=== PATIENT | male | born 1950 | race Hispanic/Latino ===

== ENCOUNTER 2019-12-13 22:27 | Inpatient (IN) | payer MEDICARE ==
[~2019-12-13 22:27] MED LIST: Iopamidol-370 76% 500 ML 1 ML ONE
[2019-12-13] MEDS ORDERED: Tranexamic Acid 1,000 MG/10 ML VIAL ONE (22:32)
[2019-12-13] MEDS ORDERED: CEFAZOLIN 1 GM VIAL ONE (22:33)
[2019-12-13] MEDS ORDERED: Boostrix 0.5 ML VIAL ONE (22:33)
[2019-12-13] MEDS ORDERED: Calcium Chloride 1 GM/10 ML Abboject SYRINGE ONE (22:52)
[2019-12-13 22:54] LABS: Base Excess-Venous -5.9 mmol/L (-2.0 to 3.0); Bicarbonate (HCO3v) 21.2 mmol/L (22.0-28.0); Calcium, Ionized 0.96 mmol/L (See Comments:); Chloride 103 mmol/L (98-107); Hemoglobin - Calc 13.2 g/dL (14.0-18.0); Potassium 3.3 mmol/L (3.5-5.1); Sodium 135 mmol/L (138-145); T. Carbon Dioxide 22.6 mmol/L (22.0-28.0); vO2 Saturation-calc 78.3 % (60.0-85.0)
[2019-12-13 22:56] LABS: Hemoglobin 13.1 g/dL (14.0-18.0); Mean Corpuscular HGB CONC 32.7 g/dL (32.0-36.0); Mean Corpuscular Hemoglobin 35.1 pg (27.0-31.0); Mean Platelet Volume 7.7 fL (7.4-10.4); Platelet Count 173 thou/uL (130-400); RBC Distribution Width 13.3 % (11.5-14.5); Red Blood Cell (RBC) Count 3.73 mill/uL (4.70-6.10); White Blood Cell (WBC) Count 15.1 thou/uL (4.8-10.8)
[2019-12-13] MEDS ORDERED: Fentanyl 100 MCG/2 ML VIAL ONE (22:57)
[2019-12-13] MEDS ORDERED: Phenylephrine 10 MG/ML VIAL ONE (22:57)
[2019-12-13] MEDS ORDERED: Tranexamic Acid 1,000 MG in Sodium Chloride 0.9% 250 ML 250 ML IVPB SCH (23:00)
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
[2019-12-13 23:03] LABS: INR-International Normal Ratio 1.1; PTT 27.6 sec (22.9-36.1); Prothrombin Time 14.1 sec (12.0-14.7)
[2019-12-13 23:09] LABS: #Basophils 0.1 thou/uL (0.0-0.2); #Eosinphils 0.2 thou/uL (0.0-0.7); #Lymphocytes 3.8 thou/uL (1.20-3.40); #Monocytes 0.7 thou/uL (0.11-0.59); #Neutrophils 10.3 thou/uL (1.40-6.50); %Basophils 0.6 % (0.0-1.0); %Eosinophils 1.4 % (0.0-10.0); %Lymphocytes 25.4 % (21.0-51.0); %Monocytes 4.4 % (0.0-10.0); %Neutrophils 68.2 % (42.0-75.0)
[2019-12-13 23:12] LABS: ALT (SGPT) 71 U/L (8-55); AST (SGOT) 176 U/L (5-34); Albumin 3.5 g/dL (3.4-4.8); Alcohol 272 mg/dL (Less than 10); Alkaline Phosphatase 59 U/L (40-110); Anion Gap 17 mmol/L (10-20); BUN (Urea Nitrogen) 8 mg/dL (8.4-25.7); Bilirubin, Total 0.4 mg/dL (0.2-1.2); Calc. Creatinine Clearance 0 mL/min (70-130); Calcium 8.1 mg/dL (7.8-10.44); Carbon Dioxide 18 mmol/L (23-31); Chloride 102 mmol/L (98-107); Estimated GFR-MDRD 74; Glucose 119 mg/dL (80-115); Potassium 3.4 mmol/L (3.5-5.1); Protein, Total 6.5 g/dL (5.8-8.1); Sodium 134 mmol/L (136-145)
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
--- NOTE | 2019-12-13 23:37 | CT ---
CT of the chest, abdomen, pelvis, thoracic spine, and lumbar spine: 12/13/2019 COMPARISON: None HISTORY: Injury, trauma, pain TECHNIQUE: axial CT imaging at 5 mm intervals from the thoracic inlet through the pubic symphysis wit h IV contrast. Coronal and sagittal reformatted imaging obtained FINDINGS: Old left clavicle fracture. No axillary, hilar, or mediastinal lymphadenopathy is seen. There is atherosclerotic calcification of the descending thoracic aorta. Coronary arterial calcification is noted. There is subcutaneous and intramuscular gas in the lateral right deltoid region. There is no pneumothorax seen on either side. There is soft tissue density/thickening in the region of the trevon of the diaphragm on the right, best seen on axial image 48 suspicious for hemorrhage, origin uncertain. Mild increased linear density noted within the bilateral lower lobes with no acute pulmonary parenchy mal abnormality seen. Review of the osseous structures of the chest demonstrate no evidence for displaced fracture. Evaluat ion of the anterior lateral ribs slightly limited bilaterally on the basis of motion artifact. There is no free intraperitoneal air or fluid seen. The hepatic parenchyma is hypodense, suggesting steatosis. No hepatic or splenic laceration. The gall bladder, pancreas, adrenal glands, and kidneys demonstrate no acute findings. There is a upper pole hypodensity within the right kidney with posterior calcification measuring 1.4 cm for which follow-up renal ultrasound is suggested. There is small volume fluid within the stomach. Limited assessment of the bowel demonstrates no evidence for inflammatory change or obstruction. There is gas within the subcutaneous fat and musculature medial to the right common femoral artery. T he vascular structures of the abdomen/pelvis appear patent. There is scattered atherosclerotic calcification of the abdominal aorta and its branches. There is soft tissue swelling and subcutaneous fat stranding as well as foci of soft tissue gas later al to the superior aspect of the right iliac bone. Neither hip appears dislocated. There is no widening of the sacroiliac joints or pubic symphysis. No acute pelvic fracture is noted. Thoracic spine: The anterior aspect of the intervertebral disc space at the T11-12 level is widened. There is no anterolisthesis or retrolisthesis noted within the thoracic spine. There is multilevel lower and mid thoracic spine disc space narrowing with anterior osteophyte format ion. There is multilevel lumbar spine degenerative change which includes multilevel lower lumbar spine fac et hypertrophy. Bilateral L3 pars defects are seen. No acute lumbar spine fracture is noted. IMPRESSION: Thickening of the right diaphragmatic trevon which is suspicious for hemorrhage, origin unc ertain. This could be related to diaphragmatic injury. Soft tissue injury of the right hemipelvis/right lower quadrant. Anterior widening of the T11-12 interspace, which could signify acute injury in the proper clinical s etting. Recommend follow-up MRI in clinical correlation. Results called to Dr. Pascal 11:34 PM 12/13/2019
[2019-12-13] MEDS ORDERED: Lidocaine 1% PF 5 ML VIAL ONE (23:40)
[2019-12-13] MEDS ORDERED: PROPOFOL 200 MG/20 ML VIAL ONE (23:40)
[2019-12-13] MEDS ORDERED: Rocuronium Bromide 10 MG/ML (10ML VIAL) ONE (23:40)
[2019-12-13] MEDS ORDERED: Glycopyrrolate 0.2 MG/ML 5 ML SYRINGE ONE (23:40)
--- NOTE | 2019-12-13 23:42 | CT ---
CT angiogram of the right thigh: 12/13/2019 COMPARISON: None HISTORY: Injury, trauma, pain TECHNIQUE: Axial CT imaging at 2.5 mm intervals from the lower pelvis through the upper calf with IV contrast. Coronal and sagittal 3-D reformatted imaging obtained. FINDINGS: The external and internal iliac arteries appear patent on the right. The common femoral art ty, profunda femoral artery, and superficial femoral artery are patent on the right. The right popliteal artery is patent. Imaged portions of the right anterior tibial artery, peroneal artery, and posterior tibial artery are patent. No evidence for right femur fracture. There is a comminuted fracture of the fibular head. The patella is slightly laterally located which could be positional or could be on the basis of mild subluxation. IMPRESSION: Comminuted fracture of the right fibular head. Imaged arterial structures of the right lo wer extremity are patent. The patella is slightly laterally located which could signify positioning or minimal lateral subluxation. Results called to Dr. Pascal at 11:40 PM 12/13/2019.
--- NOTE | 2019-12-13 23:43 | RAD ---
2 views right forearm: 12/13/2019 COMPARISON: None HISTORY: Injury, trauma, pain FINDINGS: Extensive carpal bone fusion noted. Probable old fracture along the dorsal aspect of the wr ist. There is soft tissue swelling dorsal to the wrist. The wrist is not fully assessed on this exam. There is a comminuted obliquely oriented and displaced fracture involving the midshaft of the r ight ulna. IMPRESSION: Comminuted displaced midshaft right ulnar fracture.
--- NOTE | 2019-12-13 23:44 | RAD ---
2 views of the right knee: 12/13/2019 COMPARISON: None HISTORY: Injury, trauma, pain FINDINGS: No fracture or dislocation. No radiopaque foreign body or subcutaneous gas. IMPRESSION: No acute findings. There is a comminuted nondisplaced obliquely oriented fracture at the base of the right fibular head. No knee joint effusion. No evidence for dislocation. No additional fracture is evident. IMPRESSION: Fracture of the right fibular head/proximal fibular shaft.
--- NOTE | 2019-12-13 23:46 | RAD ---
2 views of the right wrist: 12/13/2019 COMPARISON: None HISTORY: Injury, trauma, pain FINDINGS: There is extensive fusion involving the carpal bones. There is prominent degenerative corado e involving the radiocarpal joint and the distal radioulnar joint with a probable old fracture along the dorsal aspect of the wrist. There is soft tissue swelling along the dorsal aspect of the wr ist with no displaced fracture or dislocation seen. IMPRESSION: 2 view examination of the right wrist as detailed above. If symptoms persist, follow-up i n 7-10 days with dedicated 4 view examination.
[2019-12-13] MEDS ORDERED: Sodium Chloride 0.9% 0 ML ONE (23:58)
[2019-12-13] MEDS ORDERED: Neomycin-Polymyxin 1 ML AMP ONE (23:59)
[2019-12-14] MEDS ORDERED: Dextrose 5% in Water 1,000 ML IV PRN (00:10)
[2019-12-14] MEDS ORDERED: Ondansetron PF 4 MG/2 ML Vial IVP PRN (00:10)
[2019-12-14] MEDS ORDERED: Dextrose 50% Abboject 50 ML SYRINGE SLOW IVP PRN (00:10)
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
[2019-12-14] MEDS ORDERED: Tranexamic Acid 1,000 MG/10 ML VIAL ONE (01:05)
[2019-12-14] MEDS ORDERED: PACU-Morphine 4MG/ML VIAL SLOW IVP PRN (01:16)
[2019-12-14] MEDS ORDERED: HYDROmorphone 2 MG/ML VIAL SLOW IVP PRN (01:16)
[2019-12-14] MEDS ORDERED: Promethazine HCl 25 MG/ML VIAL SLOW IVP PRN (01:16)
[2019-12-14] MEDS ORDERED: Promethazine HCl 25 MG/ML VIAL IM PRN (01:16)
[2019-12-14] MEDS ORDERED: Ondansetron HCl/PF 4 MG/2 ML Vial IVP PRN (01:16)
[2019-12-14] MEDS ORDERED: traMADol HCl 50 MG TAB PO PRN (01:19)
[2019-12-14] MEDS ORDERED: Ibuprofen 600 MG TAB PO PRN (01:19)
[2019-12-14] MEDS ORDERED: Fentanyl 100 MCG/2 ML VIAL ONE ×3 (01:23→02:12)
[2019-12-14] MEDS ORDERED: Acetaminophen 325 MG TAB PO SCH (01:30)
[2019-12-14] MEDS ORDERED: Potassium Phosphate 30 MMOL in Sodium Chloride 0.9% 500 ML IVPB SCH (01:30)
[2019-12-14 01:39] LABS: Hemoglobin 13.2 g/dL (14.0-18.0)
[2019-12-14 02:00] LABS: Magnesium 1.6 mg/dL (1.6-2.6); Phosphorus 4.2 mg/dL (2.3-4.7)
[2019-12-14 02:07] LABS: Lactic Acid 4.5 mmol/L (0.5-2.2)
[2019-12-14] MEDS ORDERED: PROPOFOL 20 ML ONE (02:24)
[2019-12-14] MEDS ORDERED: Lidocaine 1% w/Epinephrine 1:100K 20 ML VIAL ONE (03:46)
[2019-12-14] MEDS: Morphine 2 MG/ML VIAL SLOW IVP PRN ×5 (04:00→17:32)
[2019-12-14] MEDS ORDERED: Lactated Ringer's 1,000 ML IV SCH (04:00)
[2019-12-14] MEDS ORDERED: Lidocaine 1% w/Epinephrine 1:100K 20 ML VIAL FS SCH (04:00)
[2019-12-14 04:23] VITALS: BMI 25.8
[2019-12-14] MEDS: Sodium Chloride 0.9% 1,000 ML IV SCH ×4 (04:29→18:46)
[2019-12-14 04:43] LABS: Bilirubin Negative (Negative); Blood, Urine 3+ (Negative); Clarity Clear (Clear); Glucose, Urine (Dipstick) Normal (Negative); Ketone, Urine Negative (Negative); Leukocyte Negative Leu/uL (Negative); Nitrite Negative (Negative); Protein, Urine (Dipstick) 30 mg/dL (Neg-Trace); RBC/HPF 0-3 HPF (0-3); Specific Gravity, Urine 1.033 (1.002-1.036); Squamous Epithelial None Seen HPF (0-3); Urobilinogen Normal mg/dL (Less than 2); pH, Urine 6.5 (5.0-9.0)
[2019-12-14 04:51] LABS: Bacteria/HPF 1+ HPF (None Seen)
[2019-12-14 04:52] LABS: Urine Culture Reflex Yes Yes
[2019-12-14] MEDS: CEFAZOLIN 2 GM in Premix Bag 1 BAG IVPB SCH ×3 (04:55→21:43)
[2019-12-14 06:02] LABS: Anion Gap 13 mmol/L (10-20); BUN (Urea Nitrogen) 7 mg/dL (8.4-25.7); Calc. Creatinine Clearance 94 mL/min (70-130); Calcium 7.9 mg/dL (7.8-10.44); Carbon Dioxide 18 mmol/L (23-31); Chloride 105 mmol/L (98-107); Estimated GFR-MDRD Greater than 90; Glucose 130 mg/dL (80-115); Potassium 3.3 mmol/L (3.5-5.1); Sodium 133 mmol/L (136-145)
[2019-12-14] MEDS: hydrALAZINE 20 MG/ML VIAL SLOW IVP PRN ×3 (06:16→13:34)
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
--- NOTE | 2019-12-14 07:27 | RAD ---
Exam:2 views left elbow HISTORY: As post reduction COMPARISON: 12/14/2019 at 1:52 AM FINDINGS: Interval reduction protrusion or dislocation. Limited evaluation of fine bony detail due to overlying fiberglass cast. There does appear to be periosteal reaction involving the distal humerus suggesting possible distal humerus fracture. Alignment is near-anatomic. IMPRESSION: 1. Status post reduction of previous noted dislocation. Near anatomic alignment. 2. Limited evaluation of fine bony detail. Possible injury involving the distal humerus.
--- NOTE | 2019-12-14 07:29 | RAD ---
Exam:Intraoperative fluoroscopy HISTORY: Right forearm ORIF COMPARISON: None FINDINGS: 3 intraoperative fluoroscopic images demonstrate internal fixation of a right ulnar diaphys eal fracture. Near anatomic alignment. There is overlying metallic density in the soft tissues at the level of the radius. Exposure: 3.9 seconds. 0.14 mGy. IMPRESSION: Intraoperative fluoroscopy as above.
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
[2019-12-14] MEDS ORDERED: Bacitracin 1 PK TOP PRN (07:46)
[2019-12-14] MEDS: Cyclobenzaprine 10 MG TAB PO PRN ×3 (09:34→23:42)
[2019-12-14] MEDS: Acetaminophen 325 MG TAB PO SCH ×3 (09:34→21:43)
[2019-12-14] MEDS: Gabapentin 300 MG CAP PO SCH ×3 (09:35→21:42)
[2019-12-14] MEDS: Famotidine 20 MG TAB PO SCH ×2 (09:35→21:43)
[2019-12-14] MEDS: Polyethylene Glycol 3350 17 GM Packet PO SCH (09:35)
[2019-12-14] MEDS: Thiamine 100 MG TAB PO SCH (09:35)
[2019-12-14] MEDS: Senokot S 8.6-50 MG TAB PO SCH ×2 (09:35→21:41)
[2019-12-14] MEDS: Oxazepam 10 MG CAP PO SCH ×3 (09:39→21:41)
--- NOTE | 2019-12-14 11:16 | MRI ---
THORACIC SPINE MRI WITHOUT CONTRAST: HISTORY: Widening of the T11-T12 space. COMPARISON: None. CORRELATION: Chest, abdomen, and pelvic CT 12/13/2019. FINDINGS: There are minimal Modic changes involving multiple endplates. There is a hemangioma at the T7 and T11 vertebral body levels. Overall there is appropriate T1 marrow signal intensity of the thoracic vertebrae. Thoracic spine vertebral body heights are maintained. There is no evidence of an acute tho racic spine fracture. There is nonspecific edema along the anterior superior right aspect of T12 vertebral body. No significant loss of vertebral body height. There is widening of the T11-T12 disc s pace with associated T2 and STIR hyperintensity. There is an associated posterior disc herniation. There does not appear to be abnormal signal intensity in the lamina or facets at T11 or T12. There is mild anterior and paraspinal edema centered at the T11-T12 disc space. Visualized mediastinum is unremarkable. There is consolidation and pleural effusion involving both lo wer lobes which may represent atelectasis, pneumonia or contusion. There is a cyst involving the right kidney. The thoracic cord has a normal size and signal intensity. No cord malacia, no cord expansion or abnor mal T2 hyperintensity in the thoracic cord. Conus medullaris terminates at the inferior aspect of T12. T11-T12: There is mild central canal stenosis secondary to a broad-based disc bulge. There does appea r to be a tear along the posterior margin in the annulus. Throughout the thoracic spine, neural foramina are patent. IMPRESSION: 1. Injury in the T11-T12 disc space with a horizontally orientated injury through the disc space. No evidence of posttraumatic change in the adjacent vertebral bodies, with the exception of a small amount of edema on the anterior right T12 superior endplate. No evidence of vertebral body compressio n. 2. Mild central canal stenosis secondary to broad-based disc bulge at T11-T12. There is associated po sterior annular fissure. Transcribed Date/Time: 12/14/2019 11:23 AM
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
[2019-12-14] MEDS: traMADol HCl 50 MG TAB PO SCH ×3 (13:22→23:41)
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
[2019-12-14] MEDS: Amlodipine 10 MG TAB PO SCH (21:43)
[2019-12-14] MEDS: cloNIDine 0.1 MG TAB PO PRN (23:41)
[2019-12-15] MEDS: Acetaminophen 325 MG TAB PO SCH ×5 (03:01→21:02)
[2019-12-15] MEDS: CEFAZOLIN 2 GM in Premix Bag 1 BAG IVPB SCH (05:20)
[2019-12-15] MEDS: traMADol HCl 50 MG TAB PO SCH ×3 (05:20→17:56)
[2019-12-15] MEDS: cloNIDine 0.1 MG TAB PO PRN ×2 (05:20→17:59)
[2019-12-15] MEDS: Oxazepam 10 MG CAP PO SCH ×3 (05:21→21:01)
[2019-12-15 05:41] LABS: Lactic Acid 1.2 mmol/L (0.5-2.2)
[2019-12-15 05:51] LABS: Anion Gap 12 mmol/L (10-20); BUN (Urea Nitrogen) 11 mg/dL (8.4-25.7); Calc. Creatinine Clearance 106 mL/min (70-130); Calcium 7.4 mg/dL (7.8-10.44); Carbon Dioxide 19 mmol/L (23-31); Chloride 106 mmol/L (98-107); Estimated GFR-MDRD Greater than 90; Glucose 105 mg/dL (80-115); Magnesium 2.4 mg/dL (1.6-2.6); Phosphorus 2.2 mg/dL (2.3-4.7); Potassium 3.9 mmol/L (3.5-5.1); Sodium 133 mmol/L (136-145)
[2019-12-15 06:03] LABS: #Lymphocytes 1.6 thou/uL (1.20-3.40); #Monocytes 0.6 thou/uL (0.11-0.59); #Neutrophils 5.1 thou/uL (1.40-6.50); %Basophils 0.5 % (0.0-1.0); %Eosinophils 0.6 % (0.0-10.0); %Lymphocytes 21.2 % (21.0-51.0); %Monocytes 8.7 % (0.0-10.0); %Neutrophils 68.9 % (42.0-75.0); Hemoglobin 11.6 g/dL (14.0-18.0); Mean Corpuscular HGB CONC 31.7 g/dL (32.0-36.0); Mean Corpuscular Hemoglobin 33.3 pg (27.0-31.0); Mean Platelet Volume 8.4 fL (7.4-10.4); Platelet Count 109 thou/uL (130-400); Platelet Morphology Comment Appears Decreased; RBC Distribution Width 15.2 % (11.5-14.5); Red Blood Cell (RBC) Count 3.47 mill/uL (4.70-6.10); White Blood Cell (WBC) Count 7.4 thou/uL (4.8-10.8)
[2019-12-15] MEDS ORDERED: Sodium Phosphate 30 MMOL in Sodium Chloride 0.9% 250 ML 250 ML IVPB SCH (09:00)
[2019-12-15] MEDS: Famotidine 20 MG TAB PO SCH ×2 (09:08→21:02)
[2019-12-15] MEDS: Thiamine 100 MG TAB PO SCH (09:08)
[2019-12-15] MEDS: Senokot S 8.6-50 MG TAB PO SCH ×2 (09:08→21:02)
[2019-12-15] MEDS: Gabapentin 300 MG CAP PO SCH (09:08)
[2019-12-15] MEDS: Polyethylene Glycol 3350 17 GM Packet PO SCH (09:08)
[2019-12-15] MEDS: Folic Acid 1 MG TAB PO SCH (09:09)
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
[2019-12-15] MEDS: Sodium Chloride 0.9% 1,000 ML IV SCH (11:19)
[2019-12-15 12:46] LABS: SARS-CoV-2 MS2 Positive; SARS-CoV-2 N Gene Negative; SARS-CoV-2 S Gene Negative; SARS-CoV-2 by NAA Not Detected (NotDetected); SARS-CoV-2 orf1ab Negative
[2019-12-15] MEDS: Fluticasone Propionate Nasal Spray 16 gm Bottle NASAL SCH (13:29)
--- NOTE | 2019-12-15 13:44 | MRI ---
MRI RIGHT KNEE 12/15/19 PROVIDED CLINICAL HISTORY: Knee dislocation. FINDINGS: There is proximal ACL disruption. There is midsubstance PCL disruption. There is full thickness disru ption of the MCL at its femoral attachment. Intact fibers of the MPFL are not identified. The lateral collateral ligamentous complex appears intact. The extensor mechanism appears intact. The re is a small radial tear involving the body of the lateral meniscus. There is a nondisplaced vertica l longitudinal tear involving the body of the medial meniscus peripherally. There is full thickness disruption of the medial head gastrocnemius tendon origin with retraction álvaro roximately to the level of the joint line. There are partial thickness myofascial tears seen involvin g the lateral head gastrocnemius, plantaris, and vastus lateralis muscles. There is extensive noncircumscribed fluid signal intensity within the soft tissues about the knee pre sumably reflecting bruising and/or edema. There is a comminuted, displaced proximal fibular fracture. There is a moderate knee joint effusion. The pes tendon insertions are not entirely included on the imaging volume on the axial images limitin g evaluation. There is a small osteochondral impaction injury involving the central weightbearing lateral femoral c ondyle. No additional focal articular cartilage defect is apparent. IMPRESSION: 1. Disruption of the ACL, PCL and MCL as above. 2. Medial and lateral meniscal tears as described. 3. Full thickness disruption of the medial head gastrocnemius tendon origin with retraction. Ext ensive periarticular muscular injuries as described. 4. Fibular fracture as above. POS: [facility]
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
[2019-12-15] MEDS: Gabapentin 100 MG CAP PO SCH ×3 (15:00→21:02)
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
[2019-12-15] MEDS ORDERED: Amlodipine 10 MG TAB PO SCH (21:00)
[2019-12-15] MEDS: Enoxaparin Sodium 30 MG/0.3 ML SYRINGE SC SCH (21:03)
[2019-12-15] MEDS: Amlodipine 10 MG TAB PO SCH (21:05)
[2019-12-16] MEDS: traMADol HCl 50 MG TAB PO SCH ×4 (03:01→17:25)
[2019-12-16] MEDS: cloNIDine 0.1 MG TAB PO PRN (04:35)
[2019-12-16] MEDS: Cyclobenzaprine 10 MG TAB PO PRN (04:35)
[2019-12-16] MEDS: Acetaminophen 325 MG TAB PO SCH ×4 (04:37→20:58)
[2019-12-16] MEDS: Oxazepam 10 MG CAP PO SCH ×3 (04:37→21:00)
[2019-12-16 06:16] LABS: #Eosinphils 0.2 thou/uL (0.0-0.7); #Lymphocytes 1.2 thou/uL (1.20-3.40); #Monocytes 0.7 thou/uL (0.11-0.59); #Neutrophils 6.5 thou/uL (1.40-6.50); %Basophils 0.5 % (0.0-1.0); %Lymphocytes 14.2 % (21.0-51.0); %Monocytes 7.7 % (0.0-10.0); %Neutrophils 75.6 % (42.0-75.0); Hemoglobin 11.5 g/dL (14.0-18.0); Mean Corpuscular HGB CONC 33.2 g/dL (32.0-36.0); Mean Corpuscular Hemoglobin 35.2 pg (27.0-31.0); Mean Platelet Volume 9.2 fL (7.4-10.4); Platelet Count 94 thou/uL (130-400); RBC Distribution Width 14.5 % (11.5-14.5); Red Blood Cell (RBC) Count 3.27 mill/uL (4.70-6.10); White Blood Cell (WBC) Count 8.6 thou/uL (4.8-10.8)
[2019-12-16 06:27] LABS: Anion Gap 15 mmol/L (10-20); BUN (Urea Nitrogen) 17 mg/dL (8.4-25.7); Calc. Creatinine Clearance 102 mL/min (70-130); Calcium 7.7 mg/dL (7.8-10.44); Carbon Dioxide 19 mmol/L (23-31); Chloride 104 mmol/L (98-107); Estimated GFR-MDRD Greater than 90; Glucose 97 mg/dL (80-115); Magnesium 2.1 mg/dL (1.6-2.6); Potassium 3.8 mmol/L (3.5-5.1); Sodium 134 mmol/L (136-145)
[2019-12-16] MEDS ORDERED: Sodium Phosphate 30 MMOL in Sodium Chloride 0.9% 250 ML 250 ML IVPB SCH (08:15)
[2019-12-16] MEDS: Carvedilol 3.125 MG TAB PO SCH ×2 (09:32→17:25)
[2019-12-16] MEDS: Famotidine 20 MG TAB PO SCH ×2 (09:32→20:58)
[2019-12-16] MEDS: Folic Acid 1 MG TAB PO SCH (09:32)
[2019-12-16] MEDS: Fluticasone Propionate Nasal Spray 16 gm Bottle NASAL SCH (09:32)
[2019-12-16] MEDS: Enoxaparin Sodium 30 MG/0.3 ML SYRINGE SC SCH ×2 (09:32→20:59)
[2019-12-16] MEDS: Thiamine 100 MG TAB PO SCH (09:33)
[2019-12-16] MEDS: Senokot S 8.6-50 MG TAB PO SCH ×2 (09:33→20:59)
[2019-12-16] MEDS: Gabapentin 100 MG CAP PO SCH ×3 (09:33→20:59)
[2019-12-16] MEDS: Polyethylene Glycol 3350 17 GM Packet PO SCH (09:33)
--- NOTE | 2019-12-16 13:42 | EKG ---
Test Reason : Blood Pressure : / mmHG Vent. Rate : 075 BPM Atrial Rate : 075 BPM P-R Int : 000 ms QRS Dur : 096 ms QT Int : 416 ms P-R-T Axes : 000 -38 018 degrees QTc Int : 464 ms Sinus rhythm Left axis deviation Nonspecific ST abnormality Abnormal ECG Confirmed by SOLITARIO KABA DO ([id number]), editor farm journal [employer] ([id number]) on 12/16/2019 1:42:06 PM Referred By: Confirmed By:SOLITARIO KABA DO
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
[2019-12-16] MEDS: Amlodipine 10 MG TAB PO SCH (20:58)
[2019-12-17] MEDS: Acetaminophen 325 MG TAB PO SCH ×4 (01:00→20:06)
[2019-12-17] MEDS: traMADol HCl 50 MG TAB PO SCH ×4 (01:01→17:32)
[2019-12-17] MEDS ORDERED: Sodium Chloride 0.9% 250 ML IVPB SCH (01:30)
[2019-12-17 05:25] LABS: #Basophils 0.1 thou/uL (0.0-0.2); #Eosinphils 0.3 thou/uL (0.0-0.7); #Lymphocytes 1.5 thou/uL (1.20-3.40); #Monocytes 0.7 thou/uL (0.11-0.59); #Neutrophils 4.9 thou/uL (1.40-6.50); %Basophils 0.8 % (0.0-1.0); %Eosinophils 4.4 % (0.0-10.0); %Lymphocytes 20.3 % (21.0-51.0); %Monocytes 9.4 % (0.0-10.0); %Neutrophils 65.1 % (42.0-75.0); Hemoglobin 11.4 g/dL (14.0-18.0); Mean Corpuscular HGB CONC 33.1 g/dL (32.0-36.0); Mean Corpuscular Hemoglobin 34.8 pg (27.0-31.0); Mean Platelet Volume 8.3 fL (7.4-10.4); Platelet Count 136 thou/uL (130-400); RBC Distribution Width 14.4 % (11.5-14.5); Red Blood Cell (RBC) Count 3.27 mill/uL (4.70-6.10); White Blood Cell (WBC) Count 7.5 thou/uL (4.8-10.8)
[2019-12-17] MEDS: Oxazepam 10 MG CAP PO SCH ×3 (05:26→20:06)
[2019-12-17 06:19] LABS: Anion Gap 14 mmol/L (10-20); BUN (Urea Nitrogen) 19 mg/dL (8.4-25.7); Calc. Creatinine Clearance 109 mL/min (70-130); Calcium 7.7 mg/dL (7.8-10.44); Carbon Dioxide 20 mmol/L (23-31); Chloride 103 mmol/L (98-107); Estimated GFR-MDRD Greater than 90; Glucose 95 mg/dL (80-115); Phosphorus 2.5 mg/dL (2.3-4.7); Potassium 3.9 mmol/L (3.5-5.1); Sodium 133 mmol/L (136-145)
[2019-12-17] MEDS ORDERED: Carvedilol 3.125 MG TAB PO SCH (08:46)
[2019-12-17] MEDS ORDERED: Carvedilol 6.25 MG TAB PO SCH (09:00)
[2019-12-17] MEDS: Fluticasone Propionate Nasal Spray 16 gm Bottle NASAL SCH (09:15)
[2019-12-17] MEDS: Enoxaparin Sodium 30 MG/0.3 ML SYRINGE SC SCH ×2 (09:16→20:06)
[2019-12-17] MEDS: Famotidine 20 MG TAB PO SCH ×2 (09:17→20:06)
[2019-12-17] MEDS: Folic Acid 1 MG TAB PO SCH (09:17)
[2019-12-17] MEDS: Gabapentin 100 MG CAP PO SCH ×3 (09:17→20:05)
[2019-12-17] MEDS: Polyethylene Glycol 3350 17 GM Packet PO SCH (09:18)
[2019-12-17] MEDS: Tamsulosin HCl 0.4 MG CAP PO SCH (09:18)
[2019-12-17] MEDS: Senokot S 8.6-50 MG TAB PO SCH ×2 (09:18→20:06)
[2019-12-17] MEDS: Thiamine 100 MG TAB PO SCH (09:19)
[2019-12-17] MEDS: cloNIDine 0.1 MG TAB PO PRN (09:23)
[2019-12-17] MEDS: Carvedilol 3.125 MG TAB PO SCH (09:44)
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
[2019-12-17] MEDS: Carvedilol 6.25 MG TAB PO SCH (17:31)
[2019-12-17] MEDS: Amlodipine 10 MG TAB PO SCH (20:05)
[2019-12-18] MEDS: Acetaminophen 325 MG TAB PO SCH ×4 (01:10→20:18)
[2019-12-18] MEDS: traMADol HCl 50 MG TAB PO SCH ×5 (01:10→23:06)
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
--- NOTE | 2019-12-18 08:39 | RAD ---
Left elbow 3 views HISTORY: Fracture/dislocation. Follow-up. COMPARISON: 12/14/2019. FINDINGS: Radiocapitellar alignment is maintained. Overlying fiberglass splint remains in place. Anterior to the distal humerus on the lateral view is a 0.9 cm long thin, linear ossification along t he expected location of the anterior margin of the disrupted joint capsule. It is now better visualized than on the prior radiograph for the interval MRI. Immediately distal to the medial humeral epicondyles, a lobular 0.4 cm ossification likely represents an avulsion from the proximal ulna and is stable. No new fracture fragments evident. IMPRESSION : Small ossific avulsions and other findings are stable. No new abnormalities.
[2019-12-18] MEDS: Senokot S 8.6-50 MG TAB PO SCH ×2 (09:16→20:18)
[2019-12-18] MEDS: Folic Acid 1 MG TAB PO SCH (09:16)
[2019-12-18] MEDS: Tamsulosin HCl 0.4 MG CAP PO SCH (09:16)
[2019-12-18] MEDS: Famotidine 20 MG TAB PO SCH (09:16)
[2019-12-18] MEDS: Thiamine 100 MG TAB PO SCH (09:16)
[2019-12-18] MEDS: Carvedilol 6.25 MG TAB PO SCH ×2 (09:17→16:19)
[2019-12-18] MEDS: Enoxaparin Sodium 30 MG/0.3 ML SYRINGE SC SCH ×2 (09:17→20:17)
[2019-12-18] MEDS: Polyethylene Glycol 3350 17 GM Packet PO SCH (09:18)
[2019-12-18] MEDS: Fluticasone Propionate Nasal Spray 16 gm Bottle NASAL SCH (09:18)
[2019-12-18] MEDS: Gabapentin 100 MG CAP PO SCH ×3 (09:18→20:18)
[2019-12-18] MEDS: Oxazepam 10 MG CAP PO SCH ×2 (11:15→20:21)
[2019-12-18] MEDS: Amlodipine 10 MG TAB PO SCH (20:18)
[2019-12-19] MEDS: Melatonin 3 MG TAB PO PRN ×2 (00:59→22:49)
[2019-12-19] MEDS: Acetaminophen 325 MG TAB PO SCH ×4 (00:59→20:35)
[2019-12-19] MEDS: traMADol HCl 50 MG TAB PO PRN (01:00)
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
[2019-12-19] MEDS: traMADol HCl 50 MG TAB PO SCH ×4 (03:28→21:13)
[2019-12-19 05:05] LABS: Hemoglobin 11.3 g/dL (14.0-18.0); Mean Corpuscular HGB CONC 33.7 g/dL (32.0-36.0); Mean Corpuscular Hemoglobin 34.9 pg (27.0-31.0); Mean Platelet Volume 8.8 fL (7.4-10.4); Platelet Count 179 thou/uL (130-400); RBC Distribution Width 14.2 % (11.5-14.5); Red Blood Cell (RBC) Count 3.24 mill/uL (4.70-6.10)
[2019-12-19 05:38] LABS: Anion Gap 13 mmol/L (10-20); BUN (Urea Nitrogen) 18 mg/dL (8.4-25.7); Calc. Creatinine Clearance 112 mL/min (70-130); Calcium 8.4 mg/dL (7.8-10.44); Carbon Dioxide 23 mmol/L (23-31); Chloride 101 mmol/L (98-107); Estimated GFR-MDRD Greater than 90; Glucose 103 mg/dL (80-115); Magnesium 1.8 mg/dL (1.6-2.6); Phosphorus 3.4 mg/dL (2.3-4.7); Potassium 3.6 mmol/L (3.5-5.1); Sodium 133 mmol/L (136-145)
[2019-12-19] MEDS ORDERED: Carvedilol 6.25 MG TAB PO SCH (08:00)
[2019-12-19] MEDS ORDERED: Magnesium Sulfate 2 GM in Sodium Chloride 0.9% 100 ML IVPB SCH (09:00)
[2019-12-19] MEDS ORDERED: Potassium Phosphate 30 MMOL, Magnesium Sulfate 2 GM in Sodium Chloride 0.9% 250 ML IVPB SCH (09:00)
[2019-12-19] MEDS ORDERED: Lisinopril 10 MG TAB PO SCH (09:00)
[2019-12-19] MEDS: Enoxaparin Sodium 30 MG/0.3 ML SYRINGE SC SCH (09:20)
[2019-12-19] MEDS: Oxazepam 10 MG CAP PO SCH ×2 (09:21→20:32)
[2019-12-19] MEDS: Tamsulosin HCl 0.4 MG CAP PO SCH (09:21)
[2019-12-19] MEDS: Carvedilol 6.25 MG TAB PO SCH ×2 (09:21→18:34)
[2019-12-19] MEDS: Thiamine 100 MG TAB PO SCH (09:21)
[2019-12-19] MEDS: Gabapentin 100 MG CAP PO SCH ×3 (09:21→20:33)
[2019-12-19] MEDS: Folic Acid 1 MG TAB PO SCH (09:21)
[2019-12-19] MEDS: Senokot S 8.6-50 MG TAB PO SCH ×2 (10:18→20:34)
[2019-12-19] MEDS: Polyethylene Glycol 3350 17 GM Packet PO SCH (10:18)
[2019-12-19] MEDS ORDERED: Furosemide 40 MG/4 ML VIAL SLOW IVP SCH (10:30)
[2019-12-19] MEDS: Fluticasone Propionate Nasal Spray 16 gm Bottle NASAL SCH (13:18)
[2019-12-19] MEDS: Nystatin 500,000 UNITS/5 ML UDCUP SSW SCH ×2 (18:34→20:33)
[2019-12-19] MEDS: Amlodipine 10 MG TAB PO SCH (20:35)
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
[2019-12-20] MEDS: Acetaminophen 325 MG TAB PO SCH ×3 (02:33→14:09)
[2019-12-20] MEDS: traMADol HCl 50 MG TAB PO SCH (04:57)
[2019-12-20 05:36] LABS: Anion Gap 12 mmol/L (10-20); BUN (Urea Nitrogen) 14 mg/dL (8.4-25.7); Calc. Creatinine Clearance 112 mL/min (70-130); Calcium 8.1 mg/dL (7.8-10.44); Carbon Dioxide 24 mmol/L (23-31); Chloride 101 mmol/L (98-107); Estimated GFR-MDRD Greater than 90; Glucose 106 mg/dL (80-115); Magnesium 1.9 mg/dL (1.6-2.6); Phosphorus 3.3 mg/dL (2.3-4.7); Potassium 3.4 mmol/L (3.5-5.1); Sodium 134 mmol/L (136-145)
[2019-12-20] MEDS ORDERED: Carvedilol 25 MG TAB PO SCH (08:00)
[2019-12-20] MEDS ORDERED: Bisacodyl 10 MG SUPP PR SCH (09:00)
[2019-12-20] MEDS ORDERED: Enoxaparin Sodium 40 MG/0.4 ML SYRINGE SC SCH (09:00)
[2019-12-20] MEDS ORDERED: Potassium Phosphate 30 MMOL, Magnesium Sulfate 2 GM in Sodium Chloride 0.9% 250 ML IVPB SCH (09:00)
[2019-12-20] MEDS ORDERED: Magnesium Sulfate 2 GM in Sodium Chloride 0.9% 100 ML IVPB SCH (09:00)
[2019-12-20] MEDS: Polyethylene Glycol 3350 17 GM Packet PO SCH (09:52)
[2019-12-20] MEDS: Nystatin 500,000 UNITS/5 ML UDCUP SSW SCH ×2 (09:52→12:46)
[2019-12-20] MEDS: Thiamine 100 MG TAB PO SCH (09:52)
[2019-12-20] MEDS: Senokot S 8.6-50 MG TAB PO SCH (09:53)
[2019-12-20] MEDS: Gabapentin 100 MG CAP PO SCH (09:53)
[2019-12-20] MEDS: Oxazepam 10 MG CAP PO SCH (09:53)
[2019-12-20] MEDS: Folic Acid 1 MG TAB PO SCH (09:53)
[2019-12-20] MEDS: Tamsulosin HCl 0.4 MG CAP PO SCH (09:54)
[2019-12-20] MEDS: Carvedilol 6.25 MG TAB PO SCH (10:20)
[2019-12-20 11:56] VITALS: BP 133/80; TEMP 98.1
[2019-12-20] MEDS ORDERED: traMADol HCl 50 MG TAB PO SCH (12:00)
[2019-12-20] MEDS: traMADol HCl 50 MG TAB PO PRN (14:09)
[2019-12-20] MEDS ORDERED: Gabapentin 300 MG CAP PO SCH (15:00)
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
== END 2019-12-20 15:47 | DRG 511 ==
LOC: ERS 22:27 → SDC 23:29 → SURG B 12-14 03:56
PROVIDERS: ADMIT Surgery; ATTEND Surgery
PROC: 0PSGXZZ Reposition Left Humeral Shaft, External Approach (ICD-10-PCS; 2019-12-13)
PROC: 0PSK04Z Reposition Right Ulna with Internal Fixation Device, Open Approach (ICD-10-PCS; principal; 2019-12-14)
PROC: 0QSDXZZ Reposition Right Patella, External Approach (ICD-10-PCS; 2019-12-14)
DX: S52.201B Unspecified fracture of shaft of right ulna, initial encounter for open fracture type I or II (principal); E87.2 Acidosis; E87.1 Hypo-osmolality and hyponatremia; S29.8XXA Other specified injuries of thorax, initial encounter; E87.6 Hypokalemia; E83.42 Hypomagnesemia; S82.831A Other fracture of upper and lower end of right fibula, initial encounter for closed fracture; V89.2XXA Person injured in unspecified motor-vehicle accident, traffic, initial encounter; S83.104A Unspecified dislocation of right knee, initial encounter; S53.105A Unspecified dislocation of left ulnohumeral joint, initial encounter; I10 Essential (primary) hypertension; B37.9 Candidiasis, unspecified; F10.129 Alcohol abuse with intoxication, unspecified; S01.81XA Laceration without foreign body of other part of head, initial encounter; Z20.828 Contact with and (suspected) exposure to other viral communicable diseases
CPT/HCPCS: 36415; 36416; 36430; 36600; 70450; 71045; 71260; 72125; 72141; 72146; 72170; 74177; 76000; 80048; 80053; 80307; 81001; 82330; 82803; 83605; 83690; 83735; 84100; 85014; 85018; 85025; 85027; 85610; 85730; 86850; 86900; 86901; 87086; 87635; 90471; 90715; 93005; 96365; 96375; C1713; G0390; J0360; J0690; J1650; J1940; J2270; J2370; J2405; J2704; J3010; J3475; J3490; J7030; J7050; L0639; P9016; P9048; Q9967; U0003

== ENCOUNTER 2020-01-22 16:18 | Outpatient (CLI) | payer MEDICARE ==
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
== END 2020-01-22 16:19 | disposition home or self-care (01) ==
LOC: TBSIIMAG 16:18
PROVIDERS: ATTEND Surgery
DX: S22.009A Unspecified fracture of unspecified thoracic vertebra, initial encounter for closed fracture (principal)
CPT/HCPCS: 72072

== ENCOUNTER 2021-02-21 10:25 | Emergency (ER) | payer MEDICARE ==
[2021-02-21] MEDS ORDERED: Proparacaine 0.5% Opth 15 ML BOT ONE (10:59)
[2021-02-21] MEDS ORDERED: Fluorescein Opthalmic Strip ONE (10:59)
== END 2021-02-21 11:47 | disposition home or self-care (01) ==
LOC: ERS 10:25
DX: S05.01XA Injury of conjunctiva and corneal abrasion without foreign body, right eye, initial encounter (principal); H11.31 Conjunctival hemorrhage, right eye; E78.5 Hyperlipidemia, unspecified; I10 Essential (primary) hypertension; F17.210 Nicotine dependence, cigarettes, uncomplicated; X58.XXXA Exposure to other specified factors, initial encounter
CPT/HCPCS: 99283

== ENCOUNTER 2021-08-01 09:45 | Outpatient (CLI) | payer MEDICARE | END 2021-08-01 09:46 | disposition home or self-care (01) | LOC: NM 09:45 | PROVIDERS: ATTEND Urology | DX: C61 Malignant neoplasm of prostate (principal) | CPT/HCPCS: 78306; A9503 ==

== ENCOUNTER 2022-01-29 15:21 | Emergency (ER) | payer MEDICARE ==
[2022-01-29 16:46] LABS: #Basophils 0.1 thou/uL (0.0-0.2); #Monocytes 0.8 thou/uL (0.11-0.59); #Neutrophils 3.2 thou/uL (1.40-6.50); %Eosinophils 0.7 % (0.0-10.0); %Lymphocytes 32.2 % (21.0-51.0); %Monocytes 12.7 % (0.0-10.0); %Neutrophils 52.3 % (42.0-75.0); Hemoglobin 12.9 g/dL (14.0-18.0); Mean Corpuscular HGB CONC 33.7 g/dL (32.0-36.0); Mean Corpuscular Hemoglobin 37.3 pg (27.0-31.0); Mean Platelet Volume 8.1 fL (7.4-10.4); Platelet Count 188 thou/uL (130-400); Red Blood Cell (RBC) Count 3.45 mill/uL (4.70-6.10); White Blood Cell (WBC) Count 6.1 thou/uL (4.8-10.8)
[2022-01-29 16:52] LABS: ALT (SGPT) 55 U/L (8-55); AST (SGOT) 35 U/L (5-34); Acetaminophen Less than 10.0 mcg/mL (10.0-30.0); Alcohol Less than 10 mg/dL (Less than 10); Alkaline Phosphatase 57 U/L (40-110); Anion Gap 10 mmol/L (10-20); BUN (Urea Nitrogen) 11 mg/dL (8.4-25.7); Bilirubin, Total 0.8 mg/dL (0.2-1.2); CK (CPK) 92 U/L (30-200); Calc. Creatinine Clearance 0 mL/min (70-130); Calcium 8.9 mg/dL (7.8-10.44); Carbon Dioxide 25 mmol/L (23-31); Chloride 104 mmol/L (98-107); Estimated GFR 94; Globulin 2.6 g/dL (2.4-3.5); Glucose 86 mg/dL (80-115); Lipase 25 U/L (8-78); Protein, Total 6.6 g/dL (5.8-8.1); Salicylate Less than 8.0 mg/dL (15.0-30.0); Sodium 135 mmol/L (136-145)
[2022-01-29 17:03] LABS: MDiff Complete? YES; Macrocytosis SLIGHT = 6-15 cells (100X) (0-5/hpf); Platelet Morphology Comment Appears Adequate; Polychromasia SLIGHT = 2-3 cells (100X) (0-2/hpf)
[2022-01-29 18:17] LABS: Bilirubin Negative (Negative); Blood, Urine Negative (Negative); Clarity Clear (Clear); Glucose, Urine (Dipstick) Normal (Negative); Ketone, Urine Trace mg/dL (Negative); Leukocyte Negative Leu/uL (Negative); Nitrite Negative (Negative); Protein, Urine (Dipstick) Negative (Neg-Trace); Specific Gravity, Urine 1.015 (1.002-1.036); Urobilinogen Normal mg/dL (Less than 2); pH, Urine 6.5 (5.0-9.0)
[2022-01-29 18:21] LABS: Amphetamine Not Detected (NotDetected); Barbiturates Screen Not Detected (NotDetected); Benzodiazepine Screen Not Detected (NotDetected); Cocaine Metabolite Screen Not Detected (NotDetected); Methadone Not Detected (NotDetected); Methamphetamine Not Detected (NotDetected); Opiate Screen Not Detected (NotDetected); Oxycodone Screen Not Detected (NotDetected); Phencyclidine (PCP) Not Detected (NotDetected); THC/Cannabinoid Screen Not Detected (NotDetected); Tricyclic Screen Not Detected (NotDetected)
[2022-01-29] MEDS ORDERED: Midazolam HCl 2 mg/2 ml Vial ONE (20:15)
[2022-01-30] MEDS ORDERED: traZODone HCl 50 MG TAB ONE (06:16)
[2022-01-30] MEDS ORDERED: Acetaminophen 325 MG TAB ONE (07:33)
== END 2022-01-30 11:00 | disposition short-term general hospital (02) ==
LOC: ERS 15:21
DX: F22 Delusional disorders (principal); E78.5 Hyperlipidemia, unspecified; I10 Essential (primary) hypertension; F17.210 Nicotine dependence, cigarettes, uncomplicated; Z79.899 Other long term (current) drug therapy; Z79.82 Long term (current) use of aspirin
CPT/HCPCS: 36415; 70450; 71045; 80053; 80306; 80307; 81003; 82140; 82550; 83690; 84443; 84484; 85025; 93005; 96374; 96375; J2250; J3411